=== PATIENT | male | born 1975 | race American Indian/Alaskan Native ===

== ENCOUNTER 2021-05-21 01:39 | Emergency (ER) | payer SELFPAY ==
--- NOTE | 2021-05-21 03:31 | Cat Scan Report ---
CT head without contrast INDICATION : Headache following injury TECHNIQUE: Axial imaging performed from the skull apex through the skull base without the use of con trast. All CT examinations performed at this facility utilize dose modulation, iterative reconstruct ion or weight-based dosing, when appropriate, to reduce radiation dose to as low as reasonably achiev able. Exam with borderline limited secondary to motion artifact COMPARISON: None FINDINGS: No acute intracranial hemorrhage or parenchymal abnormality. Ventricles are normal in si ze and appear symmetric. Soft tissues including the orbits appear normal. No acute osseous abnorm ality. Sinuses and mastoid air cells are clear. IMPRESSION: No acute abnormality. Signer Name: Jose Rutledge MD Signed: 05/21/2021 3:26 AM Workstation Name: [id number]
--- NOTE | 2021-05-21 03:32 | Cat Scan Report ---
CT facial bones wo con INDICATION / CLINICAL INFORMATION: head injury. Facial pain following injury TECHNIQUE: Routine CT facial bones All CT scans at this location are performed using CT dose reduction for ALARA by means of automated exposure control. COMPARISON: None available. FINDINGS: The mandible is intact. No facial fracture is identified. The orbits are intact. There is some nonspe cific edema surrounding the orbits and right premaxillary soft tissues IMPRESSION: Right facial/premaxillary soft tissue contusion without underlying facial fracture. Signer Name: Jose Rutledge MD Signed: 05/21/2021 3:28 AM Workstation Name: [id number]
[2021-05-21 05:01] VITALS: BP 111/70
--- NOTE | 2021-05-21 05:27 | Emergency Department Report ---
ED Head Trauma HPI - General Chief complaint: Head Injury Stated complaint: NOSE INJURY Source: patient, police Mode of arrival: Wheelchair Limitations: No Limitations - History of Present Illness Initial comments: Patient is 46 years old male with no significant past medical history. Patient brought to the emergency room by police for evaluation of head injury. Patient had an altercation with his family and when the police took him to the car he started banging his head on the police car. Patient is complaining of left facial pain and headache. No other injuries. Complaint: head injury -: Sudden - Related Data Allergies/Adverse reactions: Allergies Allergy/AdvReac Type Severity Reaction Status Date / Time No Known Allergies Allergy Unverified 05/21/21 02:26 ED Review of Systems ROS: Stated complaint: NOSE INJURY Other details as noted in HPI Comment: All other systems reviewed and negative Constitutional: denies: chills, fever Respiratory: denies: cough, shortness of breath Cardiovascular: denies: chest pain Gastrointestinal: denies: abdominal pain, nausea, vomiting Neurological: headache. denies: weakness, numbness, paresthesias, confusion Psychiatric: suicidal thoughts. denies: depression, auditory hallucinations, visual hallucinations, homicidal thoughts ED Past Medical Hx - Past Medical History Previous Medical History?: No - Surgical History Past Surgical History?: No - Social History Smoking Status: Current Every Day Smoker Substance Use Type: Alcohol ED Physical Exam - General Limitations: No Limitations General appearance: alert, in no apparent distress - Head Head exam: Present: normocephalic, other (Left maxillary tenderness.) - Eye Eye exam: Present: normal appearance - ENT ENT exam: Present: normal exam, normal orophraynx, mucous membranes moist - Neck Neck exam: Present: normal inspection, full ROM. Absent: tenderness, meningismus - Respiratory Respiratory exam: Present: normal lung sounds bilaterally - Cardiovascular Cardiovascular Exam: Present: regular rate, normal rhythm, normal heart sounds - GI/Abdominal GI/Abdominal exam: Present: soft, normal bowel sounds. Absent: distended, tenderness, guarding, rebound, rigid, organomegaly, mass, bruit, pulsatile mass, hernia - Extremities Exam Extremities exam: Present: normal inspection, full ROM, normal capillary refill. Absent: tenderness - Back Exam Back exam: Present: normal inspection, full ROM. Absent: tenderness, CVA tenderness (R), CVA tenderness (L) - Neurological Exam Neurological exam: Present: alert, oriented X3, CN II-XII intact, normal gait, reflexes normal. Absent: motor sensory deficit - Psychiatric Psychiatric exam: Present: normal mood. Absent: suicidal ideation - Skin Skin exam: Present: warm, intact, normal color ED Course Vital Signs 05/21/21 05/21/21 03:10 04:56 Temperature 97.9 F Pulse Rate 90 Respiratory 20 12 Rate Blood Pressure 129/89 111/70 Blood Pressure 111/70 [Left] O2 Sat by Pulse 98 Oximetry - Radiology Data Radiology results: report reviewed - Medical Decision Making Patient is 46 years old male with no significant past medical history. Patient brought to the emergency room by police for evaluation of head injury. Patient had an altercation with his family and when the police took him to the car he started banging his head on the police car. Patient is complaining of left facial pain and headache. No other injuries. CT brain is unremarkable. CT facial bones showed a left zygomatic arch fracture. Patient given Naprosyn for pain. Patient also given prescription for amoxicillin and advised to follow-up with facial maxillary surgeon in the next 2 to 3 days. Patient denied any suicidal ideation. Critical care attestation.: If time is entered above; I have spent that time in minutes in the direct care of this critically ill patient, excluding procedure time. ED Disposition Clinical Impression: Zygomatic arch fracture, Head injury Disposition: DC-01 TO HOME OR SELFCARE Is pt being admited?: No Condition: Stable Instructions: Zygoma Fracture Additional Instructions: Please follow-up with the facial maxillary surgeon in the next 2 to 3 days. Referrals: PRIMARY CARE, [Referring] - 3-5 Days
== END 2021-05-21 05:55 ==
LOC: ED 01:39
DX: S02.40FA Zygomatic fracture, left side, initial encounter for closed fracture (principal); F17.200 Nicotine dependence, unspecified, uncomplicated; Z72.89 Other problems related to lifestyle; W22.8XXA Striking against or struck by other objects, initial encounter; Y93.89 Activity, other specified; Y92.89 Other specified places as the place of occurrence of the external cause; Y99.8 Other external cause status
CPT/HCPCS: 70450; 70486; 99283